=== PATIENT | female | born 1975 | race Caucasian/White ===

== ENCOUNTER → 2022-07-31 11:38 | Outpatient (CLI) | payer OTHER, SELFPAY ==
--- NOTE | ~2022-07-31 | XR_ITS ---
EXAMINATION:XR cervical spine 4-5V DATE: 07/31/2022 12:14 INDICATION: Cervical radiculopathy TECHNIQUE: AP, lateral, lateral swimmers and odontoid views of the cervical spine are provided. COMPARISON: None FINDINGS: There are 2 mm of retrolisthesis of C4 on C5. The odontoid is intact. No fracture is identi fied. The vertebral body heights are maintained. There is mild loss of intervertebral disc space heig ht at C4-5 and C5-6. Small degenerative osteophytes project from the anterior endplates of multiple v ertebral bodies. 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 P revertebral soft tissues are normal. IMPRESSION: 1. Mild cervical spondylosis without acute findings. Reviewed, dictated and finalized at location B.
== END ==
PROVIDERS: PCP Family Medicine; Visit Provider Family Medicine
DX: M47.22 Other spondylosis with radiculopathy, cervical region (principal)
CPT/HCPCS: 72050

== ENCOUNTER 2025-09-19 13:44 | Outpatient (CLI) | payer OTHER, SELFPAY ==
[2025-09-19 20:38] LABS: Thyroid Stimulating Hormone 0.983 uIU/mL (0.465-4.680)
== END 2025-09-19 13:45 | disposition home or self-care (01) ==
LOC: ANHGOSHLAB 13:44
PROVIDERS: PCP Family Medicine; Visit Provider Family Medicine
DX: E03.9 Hypothyroidism, unspecified (principal)
CPT/HCPCS: 36415; 84443